=== PATIENT | female | born 1965 | race Caucasian/White ===

== ENCOUNTER → 2019-12-30 18:05 | Outpatient (CLI) | payer BC, SELFPAY ==
--- NOTE | ~2019-12-30 | MM_ITS ---
EXAMINATION: MM screening [facility] BI w kenji HISTORY: Screening mammogram TECHNIQUE: Craniocaudal and mediolateral oblique 3-D tomosynthesis images were obtained and synthetic 2-D images were generated. CAD analysis was submitted and interpreted. COMPARISON: 12/02/2018, 10/23/2017, 08/10/2016 BREAST PARENCHYMAL COMPOSITION: The breasts are heterogeneously dense, which may obscure small masses . FINDINGS: There is no evidence of suspicious mass, calcification, or architectural distortion to sugg est malignancy in either breast. There has been no suspicious interval change. IMPRESSION: 1. No mammographic evidence of malignancy. 2. Recommend routine screening mammography in one year. BI-RADS Category 1: Negative Reviewed, dictated and finalized at location A.
== END ==
PROVIDERS: Visit Provider Obstetrics & Gynecology Gynecology
DX: Z12.31 Encounter for screening mammogram for malignant neoplasm of breast (principal)
CPT/HCPCS: 77063; 77067

== ENCOUNTER → 2021-01-10 15:54 | Outpatient (CLI) | payer BC, SELFPAY ==
--- NOTE | ~2021-01-10 | MM_ITS ---
EXAMINATION: MM screening jan BI w kenji HISTORY: Screening mammogram TECHNIQUE: Craniocaudal and mediolateral oblique 3-D tomosynthesis images were obtained and synthetic 2-D images were generated. CAD analysis was submitted and interpreted. COMPARISON: 12/22/2019, 12/02/2018, 10/23/2017 screening mammogram examinations BREAST PARENCHYMAL COMPOSITION: The breasts are heterogeneously dense, which may obscure small masses . FINDINGS: There is no evidence of suspicious mass, calcification, or architectural distortion to sugg est malignancy in either breast. There has been no suspicious interval change. IMPRESSION: 1. No mammographic evidence of malignancy. 2. Recommend routine screening mammography in one year. BI-RADS Category 1: Negative Reviewed, dictated and finalized at location A. F OPERATOR
== END ==
PROVIDERS: PCP Nurse Practitioner Family; Visit Provider Obstetrics & Gynecology Gynecology
DX: Z12.31 Encounter for screening mammogram for malignant neoplasm of breast (principal)
CPT/HCPCS: 77063; 77067

== ENCOUNTER → 2021-03-18 10:59 | Outpatient (CLI) | payer BC, SELFPAY ==
[2021-03-18 23:19] LABS: SARS-CoV-2 RNA PCR Positive
== END ==
PROVIDERS: PCP Nurse Practitioner Family; Visit Provider Nurse Practitioner Family
DX: U07.1 COVID-19 (principal)
CPT/HCPCS: C9803; U0003; U0005

== ENCOUNTER 2021-11-19 23:58 | Day surgery (SDC) | payer BC, SELFPAY ==
[2021-11-08 14:54] VITALS: BMI 27.0
--- NOTE | 2021-11-17 14:14 | P.HP_ITS ---
History of Present Illness History of Present Illness Consent: Risks, benefits, and alternatives have been discussed and questions answered. Patient agrees to proceed with procedure. Chief complaint: neoplasm screening Narrative: Brunilda Ponce is a 56 year old female Referred for colon cancer screening. Review of Systems Review of Systems: All systems reviewed & are unremarkable except as noted in HPI and below [facility] Social History Social History Smoking status: Former smoker Substance use type: does not use Living arrangements: with family Spiritual care concerns: No Meds Home Medications and Allergies Home Medications Medication Instructions Recorded Confirmed Type ergocalciferol (vitamin D2) 1,250 1,250 mcg PO USEASDIRECTD 11/08/21 11/20/21 History mcg (50,000 unit) capsule estradiol-norethindrone acet 0.5 1 tablet PO DAILY 11/08/21 11/20/21 History mg-0.1 mg tablet losartan 50 mg tablet 50 mg PO DAILY 11/08/21 11/20/21 History lutein 20 mg capsule 20 mg PO DAILY 11/08/21 11/20/21 History multivitamin with minerals-folic 1 tablet PO DAILY 11/08/21 11/20/21 History acid 0.4 mg tablet omega-3 fatty acids 1,500 mg PO DAILY 11/08/21 11/20/21 History sertraline 50 mg tablet 25 mg PO DAILY 11/08/21 11/20/21 History Allergies Allergy/AdvReac Type Severity Reaction Status Date / Time Penicillins Allergy Unknown Other Verified 11/20/21 07:43 lisinopril AdvReac Cough Verified 11/20/21 07:43 Exam Resp: Auscultation: clear to auscultation bilaterally Cardio: Rate: regular rate Rhythm: regular rhythm GI: GI Palp: Yes Soft to palpation and No Tenderness to palpation present (GI) Assessment and Plan Assessment and plan (1) Colon cancer screening: Code(s): Z12.11 - Encounter for screening for malignant neoplasm of colon Status: Acute Assessment and Plan: Colonoscopy with possible biopsy or polypectomy or cautery or injection of substances.
[2021-11-20 07:46] VITALS: BP 134/86; PULSE 72; RESP 18; TEMP 36.5; O2SAT 97; BMI 26.2
[2021-11-20] MEDS: LACTATED RINGERS 1,000 ML 150 ML IV CONT (07:48)
--- NOTE | 2021-11-20 08:09 | WPDANESEPPF ---
Anes - Initial Pre Proc Eval Procedure: Operation Date: 11/20/21 08:30 Proposed Procedures p Screening Colonoscopy - Joaquín Mo MD Date/Time: 11/20/21 08:09 Surgeon: Joaquín Mo MD Pre Op Diagnosis: neoplasm screening Patient Data Age: 56 Gender: F Height: 1.57 m Weight: 64.9 kg Last Vital Signs Temp 97.7 F 11/20/21 07:46 Pulse 72 11/20/21 07:46 Resp 18 11/20/21 07:46 BP 134/86 11/20/21 07:46 Pulse Ox 97 11/20/21 07:46 O2 Del Method Room Air 11/20/21 07:46 Allergies Allergy/AdvReac Type Severity Reaction Status Date / Time Penicillins Allergy Unknown Other Verified 11/20/21 07:43 lisinopril AdvReac Cough Verified 11/20/21 07:43 Home Medications Medication Instructions Recorded Confirmed Type ergocalciferol (vitamin D2) 1,250 1,250 mcg PO USEASDIRECTD 11/08/21 11/20/21 History mcg (50,000 unit) capsule estradiol-norethindrone acet 0.5 1 tablet PO DAILY 11/08/21 11/20/21 History mg-0.1 mg tablet losartan 50 mg tablet 50 mg PO DAILY 11/08/21 11/20/21 History lutein 20 mg capsule 20 mg PO DAILY 11/08/21 11/20/21 History multivitamin with minerals-folic 1 tablet PO DAILY 11/08/21 11/20/21 History acid 0.4 mg tablet omega-3 fatty acids 1,500 mg PO DAILY 11/08/21 11/20/21 History sertraline 50 mg tablet 25 mg PO DAILY 11/08/21 11/20/21 History Patient hx anesthesia problems: none Family hx anesthesia problems: none Results Review: All pre-operative results and documents have been reviewed as part of the pre-operative evaluation. [facility] Social History Social History Smoking status: Former smoker Substance use type: does not use Living arrangements: with family Spiritual care concerns: No Anes - Eval Final PreProcedure Day of Procedure 11/20/21 08:09 Patient weight: normal Heart: regular rate and rhythm Lungs: clear to auscultation Airway: Mallampati scale class II Neurological: alert and oriented Last oral intake: >/= 8 hours ASA classification: II Emergent: no Anesthetic plan: proceed Anesthesia type and monitoring: general GIVS and standard monitoring Results Review: All pre-operative results and documents have been reviewed as part of the pre-operative evaluation. Informed Consent: The patient's anesthetic plan and its attendant risks and benefits were discussed with the patient/family/POA. Questions were solicited and answers provided to the satisfaction of the patient/family/POA.
[2021-11-20 08:41] VITALS: BP 118/73; PULSE 76; RESP 15; O2SAT 100
[2021-11-20 08:51] VITALS: BP 118/82; PULSE 70; RESP 16; O2SAT 100
[2021-11-20 09:01] VITALS: BP 128/80; PULSE 68; RESP 16; O2SAT 100
== END 2021-11-20 09:05 | disposition home or self-care (01) ==
PROVIDERS: PCP Nurse Practitioner Family; Visit Provider Internal Medicine Gastroenterology
PROC: 0DJD8ZZ Inspection of Lower Intestinal Tract, Via Natural or Artificial Opening Endoscopic (ICD-10-PCS; CPT 45378; principal; 2021-11-20 08:30)
DX: Z12.11 Encounter for screening for malignant neoplasm of colon (principal); Z80.0 Family history of malignant neoplasm of digestive organs; Z87.891 Personal history of nicotine dependence
CPT/HCPCS: 45378; J2704; J7120

== ENCOUNTER → 2022-05-08 11:08 | Outpatient (CLI) | payer BC, SELFPAY ==
--- NOTE | ~2022-05-08 | MM_ITS ---
EXAMINATION: MM screening [facility] BI w kenji HISTORY: Screening mammogram TECHNIQUE: Craniocaudal and mediolateral oblique 3-D tomosynthesis images were obtained and synthetic 2-D images were generated. CAD analysis was submitted and interpreted. COMPARISON: 01/10/2021, 12/30/2019, 12/02/2018 BREAST PARENCHYMAL COMPOSITION: The breasts are heterogeneously dense, which may obscure small masses . FINDINGS: RIGHT BREAST: An asymmetry is present in the posterior third of the outer right breast 5 cm from the nipple on the craniocaudal view. LEFT BREAST: No suspicious mass, calcification, or architectural distortion are identified to suggest malignancy. There has been no suspicious interval change. IMPRESSION: 1. Right breast asymmetry. 2. Additional mammographic views and possible breast ultrasound are recommended. BI-RADS Category 0: Incomplete: Needs additional imaging evaluation. Reviewed, dictated and finalized at location A. ROOM TECHNICIAN IMPRESSION: 1. Right breast asymmetry. 2. Additional mammographic views and possible breast ultrasound are recommended . BI-RADS Category 0: Incomplete: Needs additional imaging evaluation.
--- NOTE | ~2022-05-08 | DEXA_ITS ---
Bone Density Report Name: NEGAR AQUINO Age: 56 Sex: Female Ethnicity: White Date of : 1965 Indication: postmenopausal; screening for osteoporosis; Referring Provider: OLI BERNAL Study: Bone densitometry was performed. Exam Date: May 08, 2022 Accession number: [id number] Bone Density: Region BMD T-score Z-score Classification AP Spine (L1-L4) 0.916 -1.2 -0.1 Osteopenia Femoral Neck (Left) 0.682 -1.5 -0.5 Osteopenia Total Hip (Left) 0.891 -0.4 0.2 Normal Femoral Neck (Right) 0.816 -0.3 0.8 Normal Total Hip (Right) 0.980 0.3 1.0 Normal Total Hip Mean 0.936 -0.1 0.6 Normal World Health Organization criteria for BMD impression classify patients as: Normal (T-score at or above -1.0), Osteopenia (T-score between -1.0 and -2.5), or Osteoporosis (T-score at or below -2.5). 10-year Fracture Risk(1): Major Osteoporotic Fracture 6.7% Hip Fracture 0.5% Reported Risk Factors: [place] (), Neck BMD=0.682, BMI=25.2 (1) FRAX(R) Version 3.08. Fracture probability calculated for an untreated patient. Fracture probability may be lower if the patient has received treatment. Clinical Information Provided by Patient: Has used the following medications: HRT (i.e. estrogen/hormone therapy), Vitamin D, MTV Patient maximum height was 62.5 Menopause Age: 53 Drinks caffeinated beverages Onset of menses at age 14 Number of children 2 Impression: The patient has low bone mass, based on the Left Femoral Neck T-score. The patient has an estimated ten-year risk of hip fracture of 0.5% and an estimated ten-year risk of major fracture of 6.7%, based on the WHO FRAX algorithm. Discussion: BONE DENSITY IS LOW AT ONE OR MORE SKELETAL SITES. This patient's lowest T-score is low at one or more skeletal sites. It meets the World Health Organization's (WHO) criteria for ?low bone mass? (T-score between -1.0 and -2.5). The patient's 10-year risk of fracture as calculated by FRAX is less than the threshold where pharmacological therapy is recommended by the National Osteoporosis Foundation (NOF). However, all treatment decisions require clinical judgment and consideration of individual patient factors, including patient preferences, comorbidities, previous drug use, risk factors not captured in the FRAX model (e.g., frailty, falls, vitamin D deficiency, increased bone turnover, interval significant decline in bone density) and possible under or overestimation of fracture risk by FRAX. The patient should follow a healthful lifestyle (good nutrition with adequate calcium and vitamin D, and appropriate weight-bearing exercise). Follow-Up: Consider repeating this study in 2 to 3 years to reassess this patient's status, or sooner if there is some new clinical indication. Reported by: [facility] on 05/08/2022 1
== END ==
PROVIDERS: PCP Nurse Practitioner Family; Visit Provider Obstetrics & Gynecology Gynecology
DX: Z12.31 Encounter for screening mammogram for malignant neoplasm of breast (principal); R92.8 Other abnormal and inconclusive findings on diagnostic imaging of breast; Z78.0 Asymptomatic menopausal state; M85.89 Other specified disorders of bone density and structure, multiple sites
CPT/HCPCS: 77063; 77067; 77080

== ENCOUNTER → 2022-06-27 09:18 | Outpatient (CLI) | payer BC, SELFPAY ==
--- NOTE | ~2022-06-27 | MMUS_ITS ---
EXAMINATION: MM diagnostic jan RT w kenji, US breast RT limited HISTORY: Kris is done TECHNIQUE: Additional 3-D tomosynthesis images of the right breast were performed and synthetic 2-D i mages were generated. CAD analysis was submitted and interpreted. High resolution upper outer and low er-outer quadrant right breast ultrasound was performed. COMPARISON: 05/08/2022 bilateral screening mammogram FINDINGS: MAMMOGRAPHIC FINDINGS: No suspicious mass, architectural distortion, malignant calcification, skin thickening or retraction is detected. ULTRASOUND: There are numerous circumscribed sonolucent lesions scattered throughout the right breast, most measu ring 5 mm or smaller, measuring up to 7 mm. No internal vascularity or posterior shadowing is noted i n association with any of these multiple lesions. No suspicious mass or shadowing is detected. IMPRESSION: 1. Benign findings 2. Routine annual mammographic screening is recommended BI-RADS Category 2: Benign finding(s). Reviewed, dictated and finalized at location A. IMPRESSION: 1. Benign findings 2. Routine annual mammographic screening is recommended BI-RADS Category 2: Benign finding(s).
== END ==
PROVIDERS: PCP Nurse Practitioner Family; Visit Provider Obstetrics & Gynecology Gynecology
DX: R92.8 Other abnormal and inconclusive findings on diagnostic imaging of breast (principal)
CPT/HCPCS: 76642; 77061; 77065; G0279

== ENCOUNTER 2023-06-10 14:11 | Outpatient (CLI) | payer BC, SELFPAY ==
--- NOTE | ~2023-06-10 | MM_ITS ---
EXAMINATION: MM screening jan BI w kenji HISTORY: Screening mammogram TECHNIQUE: Craniocaudal and mediolateral oblique 3-D tomosynthesis images were obtained and synthetic 2-D images were generated. Bilateral rotated lateral CC views. CAD analysis was submitted and interp reted. COMPARISON: June 27, 2022 diagnostic right mammogram and limited right breast ultrasound May 08, 2022, January 10, 2021 bilateral screening mammogram examinations BREAST PARENCHYMAL COMPOSITION: The breasts are heterogeneously dense, which may obscure small masses . FINDINGS: There is asymmetry in the mid and upper outer left breast. Diagnostic left mammogram and le ft breast ultrasound examination are recommended. No suspicious mass, architectural distortion, malignant calcification, skin thickening or retraction of either breast is noted otherwise. IMPRESSION: 1. Left mammographic asymmetry 2. Diagnostic left mammogram and left breast ultrasound examination are recommended BI-RADS Category 0: Incomplete: Needs additional imaging evaluation. Reviewed, dictated and finalized at location B. IMPRESSION: 1. Left mammographic asymmetry 2. Diagnostic left mammogram and left breast ultrasound examination are recomme nded BI-RADS Category 0: Incomplete: Needs additional imaging evaluation.
== END 2023-06-10 14:12 | disposition home or self-care (01) ==
LOC: ANHIMG 14:14
PROVIDERS: PCP Nurse Practitioner Family; Visit Provider Obstetrics & Gynecology Gynecology
DX: Z12.31 Encounter for screening mammogram for malignant neoplasm of breast (principal); R92.8 Other abnormal and inconclusive findings on diagnostic imaging of breast
CPT/HCPCS: 77063; 77067

== ENCOUNTER 2023-07-30 08:26 | Outpatient (CLI) | payer BC, SELFPAY ==
--- NOTE | ~2023-07-30 | MMUS_ITS ---
EXAMINATION: US breast LT complete, MM diagnostic jan LT w kenji HISTORY: Follow-up left breast asymmetry TECHNIQUE: Additional 3-D tomosynthesis images of the left breast were performed and synthetic 2-D im ages were generated. CAD analysis was submitted and interpreted. High resolution complete left breast ultrasound was performed. COMPARISON: Comparison to multiple prior studies sequentially, with oldest reviewed study dated 03/2018. BREAST PARENCHYMAL COMPOSITION: Dense: The breasts are heterogeneously dense, which may obscure small masses FINDINGS: MAMMOGRAPHIC FINDINGS: There are asymmetries in the upper outer quadrant of the left breast which are less apparent with spo t compression and mediolateral views. ULTRASOUND: Complete US of all 4 quadrants of the left breast and retroareolar region was reviewed. At 12:00, 5 c m from the nipple there is a 9 mm complicated cyst. At 2:00, 4 cm from the nipple, there is a 11 mm c omplicated cyst with internal septation. At 5:00, 3 cm from the nipple there is a 5 mm oval hypoechoi c mass with low level internal echoes, likely a complicated cyst. IMPRESSION: 1. Probable benign left breast masses by ultrasound. 2. Recommend 6 month follow-up diagnostic left mammogram and ultrasound recommended. BI-RADS category 3, probably benign findings. Reviewed, dictated and finalized at location B. IMPRESSION: 1. Probable benign left breast masses by ultrasound. 2. Recommend 6 month follow-up diagnostic left mammogram and ultrasound recomme nded. BI-RADS category 3, probably benign findings.
== END 2023-07-30 08:27 ==
PROVIDERS: PCP Family Medicine; Visit Provider Obstetrics & Gynecology Gynecology
DX: R92.8 Other abnormal and inconclusive findings on diagnostic imaging of breast (principal)
CPT/HCPCS: 76641; 77061; 77065; G0279

== ENCOUNTER 2024-02-07 09:14 | Outpatient (CLI) | payer BC, SELFPAY ==
--- NOTE | ~2024-02-07 | MMUS_ITS ---
EXAMINATION: MM diagnostic jan LT w kenji, US breast LT limited HISTORY: Follow-up left breast mass TECHNIQUE: Additional 3-D tomosynthesis images of the left breast were performed and synthetic 2-D im ages were generated. CAD analysis was submitted and interpreted. High resolution Limited left breast ultrasound was performed. COMPARISON: Comparison to multiple prior studies sequentially, with oldest reviewed study dated 12/03. BREAST PARENCHYMAL COMPOSITION: Dense: The breasts are heterogeneously dense, which may obscure small masses FINDINGS: MAMMOGRAPHIC FINDINGS: The left breast is stable without evidence for malignancy. Asymmetries are unchanged from prior exami nations. ULTRASOUND: Limited left breast ultrasound: At 2:00, 4 cm from the nipple there is a complicated cyst with investigator internal revenue al septation measuring 11 mm maximum dimension, unchanged from prior examination. At 5:00, 3 cm from the nipple there is a 4 mm cyst. IMPRESSION: 1. Stable benign-appearing left breast masses. No evidence for malignancy in the left breast. 2. Routine yearly screening mammogram and regular clinical breast examination are recommended. BI-RADS Category 2: Benign finding(s). Reviewed, dictated and finalized at location B. S CUTTER IMPRESSION: 1. Stable benign-appearing left breast masses. No evidence for malignancy in th e left breast. 2. Routine yearly screening mammogram and regular clinical breast examination a re recommended. BI-RADS Category 2: Benign finding(s).
== END 2024-02-07 09:15 | disposition home or self-care (01) ==
PROVIDERS: PCP Obstetrics & Gynecology Gynecology; Visit Provider Obstetrics & Gynecology Gynecology
DX: N63.20 Unspecified lump in the left breast, unspecified quadrant (principal)
CPT/HCPCS: 76642; 77061; 77065; G0279

== ENCOUNTER 2024-08-10 13:52 | Outpatient (CLI) | payer BC, SELFPAY ==
--- NOTE | ~2024-08-10 | DEXA_ITS ---
Bone Density Report Name: NEGAR AQUINO Age: 59 Sex: Female Ethnicity: White Date of : 1965 Indication: postmenopausal; screening for osteoporosis; Referring Provider: Nicole Steel Study: Bone densitometry was performed. Exam Date: August 10, 2024 Accession number: [id number] Bone Density: Region BMD T-score Z-score Classification AP Spine(L1-L4) 1.011 -0.3 0.9 Normal Femoral Neck (Left) 0.714 -1.2 -0.1 Osteopenia Total Hip (Left) 0.979 0.3 1.1 Normal Femoral Neck (Right) 0.780 -0.6 0.5 Normal Total Hip (Right) 1.043 0.8 1.6 Normal Femoral Neck Mean 0.747 -0.9 0.2 Normal Total Hip Mean 1.011 0.6 1.3 Normal World Health Organization criteria for BMD impression classify patients as: Normal (T-score at or above -1.0), Osteopenia (T-score between -1.0 and -2.5), or Osteoporosis (T-score at or below -2.5). 10-year Fracture Risk(1): Major Osteoporotic Fracture 6.5% Hip Fracture 0.4% Reported Risk Factors: [place] (), Neck BMD=0.714, BMI=28.3 (1) FRAX(R) Version 3.08. Fracture probability calculated for an untreated patient. Fracture probability may be lower if the patient has received treatment. Clinical Information Provided by Patient: Has used the following medications: HRT (i.e. estrogen/hormone therapy), Vitamin D Patient maximum height was 62 Menopause Age: 55 Does not regularly consume dairy products Drinks caffeinated beverages Onset of menses at age 15 Number of children 2 Impression: The patient has low bone mass, based on the Left Femoral Neck T-score. Discussion: BONE DENSITY IS LOW AT ONE OR MORE SKELETAL SITES. This patient's lowest T-score is low at one or more skeletal sites. It meets the World Health Organization's (WHO) criteria for ?low bone mass? (T-score between -1.0 and -2.5). The patient's 10-year risk of fracture as calculated by FRAX is less than the threshold where pharmacological therapy is recommended by the National Osteoporosis Foundation (NOF). However, all treatment decisions require clinical judgment and consideration of individual patient factors, including patient preferences, comorbidities, previous drug use, risk factors not captured in the FRAX model (e.g., frailty, falls, vitamin D deficiency, increased bone turnover, interval significant decline in bone density) and possible under or overestimation of fracture risk by FRAX. The patient should follow a healthful lifestyle (good nutrition with adequate calcium and vitamin D, and appropriate weight-bearing exercise). Follow-Up: Consider repeating this study in 2 to 3 years to reassess this patient's status, or sooner if there is some new clinical indication. Reported by: FRANCISCO on 08/10/2024 2:26:00 PM. Reviewed, dictated and finalized at location A.
--- NOTE | ~2024-08-10 | MM_ITS ---
EXAMINATION: MM screening jan BI w [facility] HISTORY: Screening TECHNIQUE: Craniocaudal and mediolateral oblique 3-D tomosynthesis images were obtained and synthetic 2-D images were generated. CAD analysis was submitted and interpreted. COMPARISON: Comparison to multiple prior studies sequentially, with oldest reviewed study dated 11/2020. BREAST PARENCHYMAL COMPOSITION: Dense: The breasts are heterogeneously dense, which may obscure small masses FINDINGS: There is no evidence of suspicious mass, calcification, or architectural distortion to sugg est malignancy in either breast. There has been no suspicious interval change. IMPRESSION: 1. No mammographic evidence of malignancy. 2. Recommend routine screening mammography in one year. BI-RADS Category 1: Negative Reviewed, dictated and finalized at location B.
--- OUTSIDE RECORDS SUMMARY | 2024-08-10 15:16 | XMS_ITS | CONTINUITY OF CARE DOCUMENT ---
Author Name braulio ramsey Address Unknown Organization [facility] Address [address] [place] [address] Phone [phone] Care Team Providers Care Deaf And Hard Of Hearing Teacher Name Role Phone MARY HURTADO, MINA Prince Unavailable [phone] INSURANCE PROVIDERS Payer name Policy type / Coverage type [employer] party ID [facility] [id number]
--- OUTSIDE RECORDS SUMMARY | 2024-08-10 15:16 | XMS_ITS | Data Portability ---
Author Organization [place] [facility] [employer], Main Office Address [address] [place] [address] Assessment No assessment recorded. Plan of Treatment Reminders Order Date Submit Date Provider Last Modified By Organization Details Last Modified Time Details Appointments None recorded. Lab None recorded. Referral physical therapist referral - *Please call patient to schedule* 2022 023 [email or web address] [address] [facility] [address] [place], [address], 3 09:17:07 physical therapist referral - left medial anterior foot pain, *Please call patient to schedule* 2022 023 [email or web address] [address], [place], [address], 3 09:16:51 Procedures None recorded. Surgeries None recorded. Imaging None recorded. Medication Orders None recorded. Patient TargetsNo targets recorded. Patient Instructions Encounter Date Encounter Id Patient Instructions Last Modified By Organization Details Last Modified Time 11/01/2022 [id number] prn. [email or web address] Not available 11/01 16:45:19 Reason for Referral Physical Therapist Referral for Pain of left knee joint *Please call patient to schedule* Referring Physician: [facility], Encounter Date: 11/01/2022 Physical Therapist Referral for Pain in left foot left medial anterior foot pain, *Please call patient to schedule* Referring Physician: [facility], Encounter Date: 11/01/2022 Results Created Date Observation Date Name Description Value Unit Range Abnormal Flag Note LastModifiedBy Organization Detail LastModifiedTime 04/11/19 22 04/12/2021 HEMOG LOBIN A1C hemoglobin A1C 5.5 %_of_ total _HGB <5.7 normal Not Available [address], [address], 04/12/2021 06:03:17 04/11/19 22 04/12/2021 TSH W/REF ALYCIA TO FT4 TSH w/reflex to FT4 1.58 mIU/L normal Refer ence Range > or = 20 Years 0.40- 4.50 Pregn kathryn Range s First trime ster 0.26- 2.66 Secon d trime ster 0.55- 2.73 Third trime ster 0.43- 2.91 Not Available [address], [address], 04/12/2021 06:03:17 04/11/19 22 04/12/2021 CBC (INCL UDES DIFF/ PLT) white blood cell count 5.6 thous and/u L 3.8-10 .8 normal Not Available [address], [address], 04/12/2021 06:03:16 04/11/19 22 04/12/2021 CBC (INCL UDES DIFF/ PLT) red blood cell count 4.37 deejay on/uL 3.80-5 .10 normal Not Available [address], [address], 04/12/2021 06:03:16 04/11/19 22 04/12/2021 CBC (INCL UDES DIFF/ PLT) hemoglobin 13.2 g/dL 11.7-1 5.5 normal Not Available [address], [address], 04/12/2021 06:03:16 04/11/19 22 04/12/2021 CBC (INCL UDES DIFF/ PLT) hematocrit 39.1 % 35.0-4 5.0 normal Not Available [address], [address], 04/12/2021 06:03:16 04/11/19 22 04/12/2021 CBC (INCL UDES DIFF/ PLT) MCV 89.5 fL 80.0-1 00.0 normal Not Available [address], [address], 04/12/2021 06:03:16 04/11/19 22 04/12/2021 CBC (INCL UDES DIFF/ PLT) MCH 30.2 pg 27.0-3 3.0 normal Not Available [address], [address], 04/12/2021 06:03:16 04/11/19 22 04/12/2021 CBC (INCL UDES DIFF/ PLT) MCHC 33.8 g/dL 32.0-3 6.0 normal Not Available [address], [address], 04/12/2021 06:03:16 04/11/19 22 04/12/2021 CBC (INCL UDES DIFF/ PLT) RDW 12.1 % 11.0-1 5.0 normal Not Available [address], [address], 04/12/2021 06:03:16 04/11/19 22 04/12/2021 CBC (INCL UDES DIFF/ PLT) platelet count 249 thous and/u L 140-40 0 normal Not Available [address], [address], 04/12/2021 06:03:16 04/11/19 22 04/12/2021 CBC (INCL UDES DIFF/ PLT) MPV 10.9 fL 7.5-12 .5 normal Not Available [address], [address], 04/12/2021 06:03:16 04/11/19 22 04/12/2021 CBC (INCL UDES DIFF/ PLT) absolute neutrophils 3198 cells /uL 1500-7 800 normal Not Available [address], [address], 04/12/2021 06:03:16 04/11/19 22 04/12/2021 CBC (INCL UDES DIFF/ PLT) absolute lymphocytes 1669 cells /uL 850-39 00 normal Not Available [address], [address], 04/12/2021 06:03:16 04/11/19 22 04/12/2021 CBC (INCL UDES DIFF/ PLT) absolute monocytes 599 cells /uL 200-95 0 normal Not Available [address], [address], 04/12/2021 06:03:16 04/11/19 22 04/12/2021 CBC (INCL UDES DIFF/ PLT) absolute eosinophils 112 cells /uL 15-500 normal Not Available [address], [address], 04/12/2021 06:03:16 04/11/19 22 04/12/2021 CBC (INCL UDES DIFF/ PLT) absolute basophils 22 cells /uL 0-200 normal Not Available [address], [address], 04/12/2021 06:03:16 04/11/19 22 04/12/2021 CBC (INCL UDES DIFF/ PLT) neutrophils 57.1 % normal Not Available [address], [address], 04/12/2021 06:03:16 04/11/19 22 04/12/2021 CBC (INCL UDES DIFF/ PLT) lymphocytes 29.8 % normal Not Available [address], [address], 04/12/2021 06:03:16 04/11/19 22 04/12/2021 CBC (INCL UDES DIFF/ PLT) monocytes 10.7 % normal Not Available [address], [address], 04/12/2021 06:03:16 04/11/19 22 04/12/2021 CBC (INCL UDES DIFF/ PLT) eosinophils 2.0 % normal Not Available [facility] [address], [address], 04/12/2021 06:03:16 04/11/19 22 04/12/2021 CBC (INCL UDES DIFF/ PLT) basophils 0.4 % normal Not Available [address], [address], 04/12/2021 06:03:16 04/11/19 22 04/12/2021 COMPR EHENS BRAD METAB OLIC PANEL glucose 86 mg/dL 65-99 normal Fasti ng refer ence inter shane Not Available [address], [address], 04/12/2021 06:03:15 04/11/19 22 04/12/2021 COMPR EHENS BRAD METAB OLIC PANEL urea nitrogen (BUN) 10 mg/dL 7-25 normal Not Available [address], [address], 04/12/2021 06:03:15 04/11/19 22 04/12/2021 COMPR EHENS BRAD METAB OLIC PANEL creatinine 0.63 mg/dL 0.50-1 .05 normal For patie nts >49 years of age, the refer ence limit for Creat inine is appro ximat te 13% highe r for peopl e ident ified as Afric an-Am blas n. Not Available [address], [address], 04/12/2021 06:03:15 04/11/19 22 04/12/2021 COMPR EHENS BRAD METAB OLIC PANEL eGFR non-afr. guyanese 102 mL/mi n/1.7 3m2 > or = 60 normal Not Available [address], [address], 04/12/2021 06:03:15 04/11/19 22 04/12/2021 COMPR EHENS BRAD METAB OLIC PANEL eGFR 119 mL/mi n/1.7 3m2 > or = 60 normal Not Available [address], [address], 04/12/2021 06:03:15 04/11/19 22 04/12/2021 COMPR EHENS BRAD METAB OLIC PANEL BUN/creatini ne ratio not applic able (calc ) 6-22 Not Available [address], [address], 04/12/2021 06:03:15 04/11/19 22 04/12/2021 COMPR EHENS BRAD METAB OLIC PANEL sodium 140 mmol/ L 135-14 6 normal Not Available [address], [address], 04/12/2021 06:03:15 04/11/19 22 04/12/2021 COMPR EHENS BRAD METAB OLIC PANEL potassium 4.0 mmol/ L 3.5-5. 3 normal Not Available [address], [address], 04/12/2021 06:03:15 04/11/19 22 04/12/2021 COMPR EHENS BRAD METAB OLIC PANEL chloride 104 mmol/ L 98-110 normal Not Available [address], [address], 04/12/2021 06:03:15 04/11/19 22 04/12/2021 COMPR EHENS BRAD METAB OLIC PANEL carbon dioxide 28 mmol/ L 20-32 normal Not Available [address], [address], 04/12/2021 06:03:15 04/11/19 22 04/12/2021 COMPR EHENS BRAD METAB OLIC PANEL calcium 9.4 mg/dL 8.6-10 .4 normal Not Available [address], [address], 04/12/2021 06:03:15 04/11/19 22 04/12/2021 COMPR EHENS BRAD METAB OLIC PANEL protein, total 6.8 g/dL 6.1-8. 1 normal Not Available [address], [address], 04/12/2021 06:03:15 04/11/19 22 04/12/2021 COMPR EHENS BRAD METAB OLIC PANEL albumin 4.0 g/dL 3.6-5. 1 normal Not Available [address], [address], 04/12/2021 06:03:15 04/11/19 22 04/12/2021 COMPR EHENS BRAD METAB OLIC PANEL globulin 2.8 g/dL_ (calc ) 1.9-3. 7 normal Not Available [address], [address], 04/12/2021 06:03:15 04/11/19 22 04/12/2021 COMPR EHENS BRAD METAB OLIC PANEL albumin/glob ulin ratio 1.4 (calc ) 1.0-2. 5 normal Not Available [address], [address], 04/12/2021 06:03:15 04/11/19 22 04/12/2021 COMPR EHENS BRAD METAB OLIC PANEL bilirubin, total 0.8 mg/dL 0.2-1. 2 normal Not Available [address], [address], 04/12/2021 06:03:15 04/11/19 22 04/12/2021 COMPR EHENS BRAD METAB OLIC PANEL alkaline phosphatase 74 U/L 37-153 normal Not Available [address], [address], 04/12/2021 06:03:15 04/11/19 22 04/12/2021 COMPR EHENS BRAD METAB OLIC PANEL AST 20 U/L 10-35 normal Not Available [address], [address], 04/12/2021 06:03:15 04/11/19 22 04/12/2021 COMPR EHENS BRAD METAB OLIC PANEL ALT 31 U/L 6-29 high Not Available [address], [address], 04/12/2021 06:03:15 04/11/19 22 04/12/2021 LIPID PANEL , STAND MADIHA cholesterol, total 201 mg/dL <200 high Not Available [address], [address], 04/12/2021 06:03:15 04/11/19 22 04/12/2021 LIPID PANEL , STAND MADIHA HDL cholesterol 75 mg/dL > or = 50 normal Not Available [address], [address], 04/12/2021 06:03:15 04/11/19 22 04/12/2021 LIPID PANEL , STAND MADIHA triglyceride s 113 mg/dL <150 normal Not Available [address], [address], 04/12/2021 06:03:15 04/11/19 22 04/12/2021 LIPID PANEL , STAND MADIHA LDL-choleste rol 105 mg/dL _(georgiana c) high Refer ence range : <100 Nicolette able range <100 mg/dL for prima ry preve ntion ; <70 mg/dL for patie nts with CHD or diabe tic patie nts with > or = 2 CHD risk facto rs. LDL-C is now calcu lated using the Hillary n-Hop kins calcu latcierra n, which is a valid ated novel metho d provi ding keyla r accur acy than the Fried swapna equat ion in the estim ation of LDL-C . Hillary alex SS et al. RU. 2013; 310(1 9): 2061- 206 (http ://ed ucati on.Qu estDi Mobil Oto Servis. com/f aq/FA Q164) Not Available [facility] [address] [address] [place], [address], 04/12/2021 06:03:15 04/11/19 22 04/12/2021 LIPID PANEL , STAND MADIHA chol/HDLC ratio 2.7 (calc ) <5.0 normal Not Available [employer] [facility] [address] [address] [address] , [place], [address], 04/12/2021 06:03:15 04/11/19 22 04/12/2021 LIPID PANEL , STAND MADIHA non HDL cholesterol 126 mg/dL _(georgiana c) <130 normal For patie nts with diabe grover plus 1 major ASCVD risk facto r, treat ing to a non-H DL-C goal of <100 mg/dL (LDL- C of <70 mg/dL ) is consi dered a thera peuti c optio n. Not Available [facility] [address] [place], [address], 04/12/2021 06:03:15 08/05/19 22 08/05/2021 HIV 1/2 ANTIG EN/AN TIBOD Y,FOU RTH GENER ATION W/RFL HIV Ag/Ab, 4TH gen non-re active non-re active normal HIV-1 antig en and HIV-1 /HIV- 2 antib odies were not detec carmen. There is no labor atory evide nce of HIV infec tion. YESICA Chen NOTE: This infor matio n has been discl osed to you from recor ds whose confi denti ality may be prote cted by state law. If your state requi res such prote ction , then the state law prohi bits you from cresencio romo any furth er discl osure of the infor matio n witho ut the speci fic writt en conse nt of the perso n to whom it perta ins, or as other watkins permi tted by law. A gener al autho rizat ion for the relea se of medic al or other infor matio n is NOT suffi cient for this purpo se. For addit ional infor matio n pleas e refer to http: //angel medical centercierra alex.izzy stdia gnost ics.c om/fa q/FAQ 106 (This link is being provi ded for infor matio nal/ educa nola l purpo ses only. ) The perfo rmanc e of this assay has not been clini fernanda valid ated in patie nts less than 2 years old. Not Available [employer] [facility] [address] [place], [address], 08/05/2021 19:22:13 05/09/19 23 05/08/2022 MAMMO , scree bianka, bilat eral No observ ation record ed. [email or web address] [facility] [address], [place], [address], 05/09/2022 19:40:12 05/09/19 23 05/08/2022 DEXA No observ ation record ed. [email or web address] [facility] [address], [place], [address], 05/09/2022 19:41:06 06/28/19 23 06/27/2022 MAMMO , scree bianka, bilat eral No observ ation record ed. [email or web address] [facility] [address], [place], [address], 06/27/2022 19:47:43 Result Notes None recorded. Problems Name Problem SNOMED Code Status Onset Date Resolution Date Notes Provider Name and Address Organization Details Recorded Time Acute sinusitis 12686964 Active Not Available [facility] 3 06:43:25 Pain in throat 661803383 Active Not Available [facility] 3 06:43:25 Fluid level behind tympanic membrane Active Not Available [facility] 3 06:43:25 Seasonal allergy 378090270 Active Not Available [facility] 3 06:43:25 Upper respirator y infection 53001556 Active Not Available [facility] 3 06:43:26 Essential hypertensi on 70133904 Active 2020 Not Available [facility] 3 06:43:26 Human immunodefi ciency virus antibody detected 090143098 Active 2021 Not Available [facility] 3 06:43:26 Posterior rhinorrhea 46616701 Active Not Available [facility] 3 06:43:26 Fatigue 43451274 Active Not Available [facility] 3 06:43:26 Iron deficiency anemia 03384863 Active Not Available [facility] 3 06:43:26 Pain of left knee joint 5959017852477 07 Active 2022 Malorie Bravo NP [address] [facility], [address], [place], [address] , [employer] 3 16:29:43 Pain in left foot 1151667440149 07 Active 2022 Malorie Bravo NP [address], [address], [place], [address] , [employer] 3 16:30:16 Problem Notes None recorded. Procedures Surgical History Date Name Laterality Status Provider Name and Address Organization Details Recorded Time 05/09/19 23 Most Recent Bone Density completed Malorie Bravo NP [address], [address], [place], [address], [employer] 05/09/2022 19:40:42 05/09/19 23 Most Recent Mammogram completed Malorie Rizzo RN [place] [facility] [employer] 11/01/2022 16:17:01 11/21/19 Date of Last Colonoscopy completed Not Available [facility] 05/02/2022 06:38:55 Imaging Results None recorded. Procedure Notes None recorded. Medical Equipment None Reported. Allergies Allergen ID Allergen Name Allergen Category Reaction Reaction Severity Criticality Documentation Date Start Date Code Code System Note Provider Name and Address Organization Details Recorded Time 95455 Product containin g penicilli n (product) medicatio n rash Not available Not available 05/02/2022 82616 8001 SNOMED Not Available [facility] 06:51:12 14375 lisinopri l medicatio n cough Not available Not available 11/01/2022 51922 RxNorm Malorie Rizzo RN [facility], [facility] [employer] [facility] 16:12:43 Medications Name Sig Start Date Stop Date Status Note LastModified by Organization Details LastModified Time losartan 50 mg tablet TAKE 1 TABLET DAILY active Not Available Not Available No t Available neomycin-po lymyxin-hyd rocort 3.5 mg/mL-10,00 0 unit/mL-1 % ear solution INSTILL 3 DROPS INTO AFFECTED EAR(S) BY OTIC ROUTE 3 TIMES PER DAY active Not Available Not Available No t Available doxycycline hyclate 100 mg capsule Take 1 capsule twice a day by oral route for 10 days. active Not Available Not Available No t Available azithromyci n 250 mg tablet TAKE 2 TABLETS (500 MG) BY ORAL ROUTE ONCE DAILY FOR 1 DAY THEN 1 TABLET (250 MG) BY ORAL ROUTE ONCE DAILY FOR 4 DAYS 04/25 completed Not Available Not Available Not Available clarithromy denice 500 mg tablet 04/16 completed Not Available Not Available Not Available benzonatate 100 mg capsule Take 1 capsule 3 times a day by oral route. active Not Available Not Available No t Available lisinopril 10 mg tablet 1 tab po daily. active Not Available Not Available No t Available montelukast 10 mg tablet TK 1 T PO QPM. active Not Available Not Available No t Available ergocalcife rol (vitamin D2) 1,250 mcg (50,000 unit) capsule TK 1 C PO Q WEEK WITH A LARGE MEAL active Not Available Not Available No t Available methylpredn isolone 4 mg tablets in a dose pack FOLLOW PACKAGE DIRECTION S 04/25 completed Not Available Not Available Not Available albuterol sulfate HFA 90 mcg/actuati on aerosol inhaler INHALE 1 PUFF 4 TIMES A DAY NEEDED FOR WHEEZING 11/01 completed prn Not Available Not Available Not Available bromphenira mine-pseudo ephedrine-D M 2 mg-30 mg-10 mg/5 mL oral syrup 04/25 completed Not Available Not Available Not Available fluticasone propionate 50 mcg/actuati on nasal spray,suspe nsion USE TWO SPRAYS IN EACH NOSTRIL ONCE D 04/16 completed Not Available Not Available Not Available sertraline 50 mg tablet TAKE 1 TABLET BY MOUTH EVERY DAY active Not Available Not Available No t Available Microgestin Fe 1.5/30 (28) 1.5 mg-30 mcg (21)/75 mg (7) tablet TK 1 T PO D 09/16 completed Not Available Not Available Not Available Zoloft 10mg 04/25 completed Not Available Not Available Not Available Pataday 0.2 % eye drops INSTILL 1 DROP INTO AFFECTED EYES QD 06/04 completed Not Available Not Available Not Available estradiol-n orethindron e acet 0.5 mg-0.1 mg tablet TAKE 1 TABLET BY MOUTH EVERY DAY active Not Available Not Available No t Available Suprep Bowel Prep Kit 17.5 gram-3.13 gram-1.6 gram oral solution 04/16 completed Not Available Not Available Not Available Lotemax 0.5 % eye gel drops 04/16 completed Not Available Not Available Not Available Pazeo 0.7 % eye drops INT 1 GTT IN OU QD 02/16 completed Not Available Not Available Not Available ID NOW COVID-19 Test Kit TEST DIRECTED 02/16 completed Not Available Not Available Not Available [employer]flex COVID-19 Antigen Home Test kit 04/27 completed Not Available Not Available Not Available Vitals Date Recorded Body mass index (BMI) Body height Oxygen saturation Oxygen saturation in Arterial blood by Pulse oximetry Heart rate Body temperature Body weight Systolic blood pressure Diastolic blood pressure Provider Name and Address Organization Details Last Updated DateTime 2 32 kg/m2 157.48 cm 96 % 96 % 86 /min 98.1 [degF] 60734.6 6 g 120 mm[Hg] 72 mm[Hg] Not Available [facility] 3 06:39:03 Date Recorded Body mass index (BMI) Body height Oxygen saturation Oxygen saturation in Arterial blood by Pulse oximetry Heart rate Respiratory rate Body temperature Body weight Systolic blood pressure Diastolic blood pressure Provider Name and Address Organization Details Last Updated DateTime 3 26.2 kg/m2 157.48 cm 92 % 92 % 86 /min 16 /min 99.2 [degF] 54240.7 1 g 124 mm[Hg] 80 mm[Hg] Not Available [facility] 3 06:39:03 Date Recorded Body height Body mass index (BMI) Body weight Body temperature Oxygen saturation Oxygen saturation in Arterial blood by Pulse oximetry Systolic blood pressure Diastolic blood pressure Provider Name and Address Organization Details Last Updated DateTime 3 157.48 cm 26.5 kg/m2 35216.5 9 g 96.6 [degF] 99 % 99 % 138 mm[Hg] 80 mm[Hg] Malorei Rizzo RN [facility] [employer] [facility] 3 16:15:48 Date Recorded Body mass index (BMI) Body height Oxygen saturation Oxygen saturation in Arterial blood by Pulse oximetry Heart rate Body temperature Body weight Systolic blood pressure Diastolic blood pressure Provider Name and Address Organization Details Last Updated DateTime 1 31.5 kg/m2 157.48 cm 98 % 98 % 80 /min 97.9 [degF] 42425.8 9 g 132 mm[Hg] 88 mm[Hg] Not Available [facility] 3 06:39:03 Social History Question Answer Notes LastModified by Organizat ion Details LastModified Time Tobacco Smoking Status Never Smoker Ruth adair [facility] [employer] [facility] 11/01/2022 16:06:20 Do You Have An Advance Directive? No Information not available 11/01/2022 Is Blood Transfusion Acceptable In An Emergency? Yes Information not available 11/01/2022 What Is Your Level Of Caffeine Consumption? Moderate [id number] Information not available 05/02/2022 How Much Tobacco Do You Chew? None [id number] Information not available 05/02/2022 What Is Your Code Status? Full Code Information not available 11/01/2022 In The 14 Days Before Symptom Onset, Have You Had Close Contact With A Laboratory-confi rmed COVID-19 While That Case Was Ill? No [email or web address] Information not available 11/01/2022 In The 14 Days Before Symptom Onset, Have You Had Close Contact With A Person Who Is Under Investigation For COVID-19 While That Person Was Ill? No [email or web address] Information not available 11/01/2022 What Type Of Diet Are You Following? REGULAR [id number] Information not available 05/02/2022 Which Illicit Or Recreational Drugs Have You Used? None [email or web address] Information not available 11/01/2022 What Is The Highest Grade Or Level Of School You Have Completed Or The Highest Degree You Have Received? [id number] [email or web address] Information not available 11/01/2022 How Many Days Of Moderate To Strenuous Exercise, Like A Brisk Walk, Did You Do In The Last 7 Days? 4 Information not available 11/01/2022 On Those Days That You Engage In Moderate To Strenuous Exercise, How Many Minutes, On Average, Do You Exercise? 45 Information not available 11/01/2022 Have There Been Any Changes To Your Family Or Social Situation? No [email or web address] Information not available 11/01/2022 What Is The Fluoride Status Of Your Home? Unknown Information not available 11/01/2022 Do You Use Insect Repellent Routinely? Yes [email or web address] Information not available 11/01/2022 Where Do You Live? SingleLevelHouse [email or web address] Information not available 11/01/2022 Do You Have A Medical Power Of Ice Crusher? No Information not available 11/01/2022 Do You Have Any Pets? Yes Information not available 11/01/2022 What Is Your Relationship Status? [id number] Information not available 05/02/2022 Do You Use Your Seat Belt Or Car Seat Routinely? Yes [email or web address] Information not available 11/01/2022 Do You Have Smoke And Carbon Monoxide Detectors In Your Home? Yes [email or web address] Information not available 11/01/2022 Are You Passively Exposed To Smoke? No [email or web address] Information not available 11/01/2022 Are There Any Smokers In Your House? No [email or web address] Information not available 11/01/2022 Do You Participate In Social Media? Yes [email or web address] Information not available 11/01/2022 What Types Of Sporting Activities Do You Participate In? Walk, Weight Liftin Information not available 11/01/2022 Do You Use Sunscreen Routinely? Yes [email or web address] Information not available 11/01/2022 Have You Recently Traveled Abroad? No Information not available 11/01/2022 Are You Currently In School? No Information not available 11/01/2022 Sex: Female Functional Status Question Answer Note LastModified by Organizat ion Details LastModified Time What is your level of alcohol consumption? None [id number] Information not available 05/02/2022 Do you or have you ever used smokeless tobacco? Never used smokeless tobacco [id number] Information not available 05/02/2022 What is your occupation? [employer] [email or web address] Information not available 11/01/2022 Do you or have you ever used e-cigarettes or vape? Never used electronic cigarettes [email or web address] Information not available 11/01/2022 What is your exercise level? Moderate [id number] Information not available 05/02/2022 Mental Status Question Answer Note LastModified by Organization D etails LastModified Time Do you feel stressed (tense, restless, nervous, or anxious, or unable to sleep at night)? [id number] Information not available 11/01/2022 Family History Relationship Description Onset Age of this Age Resolved Age Notes LastModified by Organization Details LastModified Time Mother Hysterectomy Uterin e cancer [id number] Not available 05/02/2022 06:38:56 Father Chronic obstructive pulmonary disease Deceas ed: 2016 [id number] Not available 05/02/2022 06:38:56 Medical History No medical history recorded. Gynecological History Statement/Question Response Date of Last Mammogram 05/08/2022 Current Control Method Menopause Date of Last Colonoscopy 11/20/2021 Most Recent Mammogram 05/08/2022 Most Recent Bone Density 05/08/2022 Obstetrics History GPAL:G 2 P 2 0 0 2 Type Value Full Term 2 Living 2 Total 2 Immunizations Vaccine Type Date Status Note Provider Nam e and Address Organization Details Recorded Time SARS-COV-2 (COVID-19) vaccine, UNSPECIFIED 1 completed Not Available [facility] 05/02/2022 06:51:01 SARS-COV-2 (COVID-19) vaccine, UNSPECIFIED 1 completed Not Available [facility] 05/02/2022 06:51:02 Influenza, split virus, trivalent, preservative 5 completed Not Available [facility] 05/02/2022 06:51:02 SARS-COV-2 (COVID-19) vaccine, UNSPECIFIED 2 completed Not Available [facility] 05/02/2022 06:51:02 Influenza, split virus, quadrivalent, preservative 1 completed Not Available [facility] 05/02/2022 06:51:03 Influenza, split virus, quadrivalent, preservative 0 completed Not Available [facility] 05/02/2022 06:51:03 Influenza, split virus, trivalent, preservative 4 completed Not Available [facility] 05/02/2022 06:51:03 Past Encounters Encounter ID Performer Location Encounter Start Date Encounter Closed Date Diagnosis/Indication Diagnosis SNOMED-CT Code Diagnosis ICD10 Code Diagnosis Note [id number] Silvino Chowdhury MD [address] [address] 09/07/2020 00:00:00 09/07/2020 16:28:56 [id number] Silvino Chowdhury MD [address] [address] 09/16/2020 00:00:00 09/16/2020 18:37:02 [id number] Silvino Chowdhury MD [address] [address] 02/16/2021 00:00:00 02/16/2021 17:00:18 [id number] Silvino Chowdhury MD [address] [address] 03/16/2021 00:00:00 03/16/2021 17:03:51 [id number] Silvino Chowdhury MD [address] [address] 04/25/2021 00:00:00 04/25/2021 16:32:51 [id number] Silvino Chowdhury MD [address] [address] 04/27/2022 00:00:00 04/27/2022 16:56:51 [id number] Malorie Bravo NP [address] [address] 11/01/2022 16:06:13 11/01/2022 16:53:40 Pain of left knee joint [id number] 94334 M25.562 Referring to PTTopical anti-infla mmatory.NS AID prn.Get new inserts in shoes...[facility]itz[facility] [employer] Pain in left foot [id number] 29196 M79.672 Health Concerns Section Related Observation LastModified by Organization Detai ls LastModified Time None Recorded Concern Status LastModified by Organization Details LastModified Time None Recorded Advance Directives Directive N: Payers Encounter Date Sequence Insurance Name Policy Number Policy Lynn Covered Member ID Lynn Member ID Guarantor Name 11/01/2022 1 [employer] [id number] Brunilda Ponce [id number] Brunilda Ponce Notes Date Note Type Note Provider Name and Address Organization Details Recorded Time 11/01/2022 text/html Here for left knee pain lateral left knee. pain when bending knee, intermittently. Pain off and on for the last year. Left thigh tense and going to get massage monthly. Doing some stretching. Pain going up stairs. Pain on top of left foot. Believes she has dropped things on left foot. Believes she has twisted left foot on occasion. More constant pain in left foot. When standing, will feel pain and popping in top of left foot. Tries to avoid ibuprofen. Has used a topical otc cream.avoids wearing heydudes as that will usually contribute to discomfort. No left hip pain. or right hip pain Malorie Bravo, MARY [address] [facility], [facility] [address], [place], [address], [facility] [employer] [facility] 11/01/2022 16:45:37 OBGyn Episode No OBEpisode recorded.
== END 2024-08-10 13:53 | disposition home or self-care (01) ==
LOC: CHSIMG 13:59
PROVIDERS: PCP Family Medicine; Visit Provider Obstetrics & Gynecology Gynecology
DX: Z12.31 Encounter for screening mammogram for malignant neoplasm of breast (principal); Z78.0 Asymptomatic menopausal state; M85.88 Other specified disorders of bone density and structure, other site
CPT/HCPCS: 77063; 77067; 77080